=== PATIENT | male | born 1955 | race Caucasian/White ===

== ENCOUNTER 2019-04-16 10:01 | Day surgery (SDC) | payer OTHER ==
[~2019-04-16] VITALS: Ht 172.7 cm; Wt 74.8 kg
[~2019-04-16 10:01] MED LIST: BL IBUPROFEN200 MG PO
[2019-04-16] MEDS ORDERED: TYLENOL 500MG TAB PO (10:37)
[2019-04-16 11:19] LABS: ACT PARTIAL THROMBO TIME 29.4 SECONDS (20.0-32.5); INTERNATIONAL NORMALIZED RATIO 1.1 RATIO (0.7-1.3)
[2019-04-16 14:25] VITALS: BP 134/79
== END 2019-04-16 14:52 | DRG 352 ==
LOC: ORM 10:01
PROVIDERS: ATTEND Surgery
PROC: 0YU50JZ Supplement Right Inguinal Region with Synthetic Substitute, Open Approach (ICD-10-PCS; principal; 2019-04-16)
DX: K40.90 Unilateral inguinal hernia, without obstruction or gangrene, not specified as recurrent (principal)
CPT/HCPCS: C9290